=== PATIENT | female | born 1955 ===

== ENCOUNTER 2018-05-07 06:59 | Day surgery (SDC) | payer MEDICARE, OTHER ==
[2017-02-13 12:12] VITALS: BMI 34.8
[2018-05-07] MEDS ORDERED: Propofol 10 mg/ml Inj (20 ML) ONE (09:31)
[2018-05-07] MEDS: Lactated Ringer's 1,000 ML IV ONE (09:40)
--- NOTE | 2018-05-07 09:40 | CP.SDSHP ---
Same Day Surgery H & P - History Proposed Procedure: colonsocopy Pre-Op Diagnosis: screen - Previous Medical/Surgical History Cardiac: Hypertension Misc: Anemia - Allergies Allergies: Allergies No Known Allergies Allergy (Unverified 11/14/16 09:13) - Physical Exam Vital Signs: Vital Signs 05/07/18 07:20 Temperature 97.5 F L Pulse Rate 80 Respiratory 20 Rate Blood Pressure 140/85 O2 Sat by Pulse 99 Oximetry Mental Status: Alert & Oriented x3 Neuro: WNL Heart: WNL Lungs: WNL GI: WNL - {Optional Preform as Required} Abdomen: WNL - Impression Impression: screening, anemia Pt. Evaluated Today:Candidate for Anesthesia & Procedure: Yes - Date & Time Date: 05/07/18 Time: :30 Short Stay Discharge - Short Stay Discharge Admitting Diagnosis/Reason for Visit: SCREENING Disposition: HOME/ ROUTINE
[2018-05-07 10:18] VITALS: O2SAT 100
[2018-05-07 11:32] VITALS: BP 132/78; PULSE 88; RESP 20; TEMP 97.3
== END 2018-05-07 11:30 | disposition home or self-care (01) ==
LOC: C.ENDO 06:59
PROVIDERS: ATTEND Internal Medicine Gastroenterology
DX: Z12.11 Encounter for screening for malignant neoplasm of colon (principal); D64.9 Anemia, unspecified; I10 Essential (primary) hypertension